=== PATIENT | male | born 1990 | race Asian ===

== ENCOUNTER → 2019-11-23 | Emergency (ER) | payer OTHER ==
[~2019-11-23] VITALS: Ht 175.3 cm; Wt 68.0 kg
[~2019-11-23] MED LIST: HYDROCORTISONE28 G2 TP
--- NOTE | 2019-11-23 13:08 | NUR ---
ED Nurse Note: AIRBORN PRECAUTION INITIATED AND SURGICAL MASK PROVIDED TO THE PT.
--- NOTE | 2019-11-23 13:10 | NUR ---
ED Nurse Note: Pt ambulated to ED d/t sore throat and dry cough. Pt is AOx4, calm and cooperative. VSS, on RA, afebrile on triage. Placed on bed. Will continue to monitor.
[2019-11-23 13:30] VITALS: BP 136/93
[2019-11-23 13:35] VITALS: BP 134/92
--- NOTE | 2019-11-23 13:35 | NUR ---
ER DISCHARGE NOTE: Pt is cleared to be discharged per Dr. Dillon, pt is aox4, on room air, with stable vital signs. pt was given dc and prescription instructions, pt was able to verbalize understanding, pt id band removed. pt is able to ambulate with steady gait. pt took all belongings.
--- NOTE | 2019-11-23 13:48 | Emergency Room Report ---
History of Present Illness General Chief Complaint: Flu Like Symptoms Source: Patient Present Illness HPI 29-year-old male on [place] EP, presents with dry cough, shortness of breath since , patient was in [facility] from 11/11/2021 11/21/2019, no known aggravating relieving factors severity is moderate, constant patient presents for evaluation denies any fevers chills body aches he endorses only cough and shortness of breath patient presents for evaluation Allergies: Coded Allergies: No Known Allergies (Unverified , 11/23/19) Patient History Past Medical History: see triage record Social History: Reports: smoking Reviewed Nursing Documentation: PMH: Agreed; PSxH: Agreed Nursing Documentation-PMH Past Medical History: No History, Except For Review of Systems All Other Systems: negative except mentioned in HPI Physical Exam Vital Signs Date Time Temp Pulse Resp B/P (MAP) Pulse Ox O2 Delivery O2 Flow Rate FiO2 11/23/19 13:08 98.2 77 16 136/93 (107) 93 Room Air Sp02 EP Interpretation: reviewed, normal General Appearance: well appearing, no apparent distress, alert Head: normocephalic, atraumatic Eyes: bilateral eye PERRL, bilateral eye EOMI ENT: uvula midline, moist mucus membranes Neck: supple, thyroid normal, supple/symm/no masses Respiratory: lungs clear, no respiratory distress, no retraction, no accessory muscle use Cardiovascular #1: normal peripheral pulses, regular rate, rhythm, no edema, no gallop, no murmur Gastrointestinal: non tender, soft, no guarding, no rebound Musculoskeletal: normal inspection Neurologic: alert, oriented x3 Psychiatric: mood/affect normal Skin: no rash, warm/dry Medical Decision Making Diagnostic Impression: Primary Impression: Upper respiratory infection Qualified Codes: J06.9 - Acute upper respiratory infection, unspecified ER Course 29-year-old male presents with dry cough, shortness of breath recent travel to [facility], patient was placed in immediate isolation a surgical mass was placed Spoke with Sam at [facility] 1:47pm , they will call back Speaking with Maryuri Sterling RN, 1:54pm Patient does not meet person of interest, no indications for them to comments while patient Patient is very well-appearing patient most likely with an upper respiratory infection disposition home with return precautions follow-up with PCP Last Vital Signs Date Time Temp Pulse Resp B/P (MAP) Pulse Ox O2 Delivery O2 Flow Rate FiO2 11/23/19 13:08 98.2 77 16 136/93 (107) 93 Room Air Disposition: HOME, SELF-CARE Condition: Stable Scripts Hydrocortisone 1% Oint (Hydrocortisone 1% Oint*) Y Oint 28 GM TP DAILY, #28 GM Prov: Cleveland Dillon MD 11/23/19 Referrals: [facility] Patient Instructions: Upper Respiratory Infection, Adult, [id number] Additional Instructions: The patient was provided with discharge instructions, notified to follow-up with a primary care doctor and or specialist in the next 24-48 hours, and to return to the ED if they have worsening of their symptoms. Please note that this report is being documented using [employer]ensor[employer] technology. This can lead to erroneous entry secondary to incorrect interpretation by the dictating instrument. Cleveland Dillon MD Nov 23, 2019 13:48
--- NOTE | 2019-11-23 14:00 | NUR ---
ED Nurse Note: DR. CLAY WAS ON THE PHONE WITH [facility] REGARDING THE PT.'S CONDITION. PER DR. CLAY, MR MIK([facility] PERSONNEL) CLEARED THE SUSPECTION OF [place] VIRUS SUSPICION. PT. VSS NOT FEVER NOTED.
== END | disposition home or self-care (01) ==
LOC: EMR 14:00
DX: J06.9 Acute upper respiratory infection, unspecified (principal); F17.200 Nicotine dependence, unspecified, uncomplicated
CPT/HCPCS: 86710; 99282